=== PATIENT | male | born 1935 | race Caucasian/White ===

== ENCOUNTER 2021-01-26 13:03 | Emergency (ER) | payer MEDICARE, SELFPAY ==
--- NOTE | ~2021-01-26 | CT_ITS ---
EXAMINATION: CT facial & cervical spine wo DATE: 01/26/2021 14:05 INDICATION: Head injury. TECHNIQUE: Computed tomography (CT) of the maxillofacial region and cervical spine was performed with out intravenous contrast. Automated exposure control and iterative reconstruction technique were empl oyed. The dose-length product was 244.02 mGy-cm. COMPARISON: None FINDINGS: MAXILLOFACIAL CT: There is rightward deviation the nasal septum. No fracture. There is mild mucosal thickening in the p aranasal sinuses. There are likely changes of ocular lens replacement surgeries. CERVICAL SPINE CT: There is mild scarring at the lung apices. There is 10 degrees dextroscoliosis of cervical spine. The re is 2 mm anterolisthesis of C5 on C6. There are changes of anterior fusion procedure from C4 to C7 with C5 corpectomy, interbody device from C4 to C6, and anterior plate and screws from C4 to C6. Inte rvertebral disc heights are normal. The following disc levels are specifically discussed: C2-C3: There is mild bilateral uncovertebral joint osteoarthritis. There is severe bilateral facet ger int osteoarthritis. There is mild left neural foraminal stenosis. There is no central canal stenosis. C3-C4: There is mild right and moderate left uncovertebral joint osteoarthritis. There is mild right and severe left facet joint osteoarthritis. There is mild right and moderate left neural foraminal st enosis. There is mild central canal stenosis. C4-C5: There is moderate bilateral uncovertebral joint hypertrophy. There is mild right facet joint o steoarthritis. There is ankylosis of left facet joint with severe hypertrophy. There is mild right an d moderate left neural foraminal stenosis. There is no central canal stenosis. C5-C6: There is mild bilateral uncovertebral joint hypertrophy. There is mild right and severe left f acet joint osteoarthritis. There is mild left neural foraminal stenosis. There is mild central canal stenosis. C6-C7: There is mild left uncovertebral joint hypertrophy. There is mild bilateral facet joint osteoa rthritis. There is mild left neural foraminal stenosis. There is no central canal stenosis. C7-T1: There is mild bilateral uncovertebral joint osteoarthritis. There is severe right and mild lef t facet joint osteoarthritis. There is no neural foraminal stenosis. There is no central canal stenos is. IMPRESSION: 1. No fracture. 2. Moderate cervical spondylosis. 3. Anterior fusion procedure from C4 to C7. Reviewed, dictated and finalized at location A.
--- NOTE | ~2021-01-26 | CT_ITS ---
EXAMINATION: CT brain wo con DATE: 01/26/2021 14:04 INDICATION: Face injury. TECHNIQUE: Computed tomography (CT) of the head was performed without intravenous contrast. The mA wa s adjusted according to patient size. Iterative reconstruction technique was employed. The dose-lengt h product was 529.67 mGy-cm. COMPARISON: None FINDINGS: There is a small old infarct in right cerebellum. There are scattered areas of low attenuat ion in the cerebral white matter. There is no intracranial hemorrhage, acute infarction, or abnormal intracranial mass lesion. The ventricles are normal in size. There is mild mucosal thickening in the paranasal sinuses. There are likely changes of ocular lens replacement surgeries. The mastoid air win ls are normal. IMPRESSION: 1. Small old infarct in right cerebellum. 2. Mild nonspecific cerebral white matter disease, which likely represents chronic small vessel ische antonia disease. Reviewed, dictated and finalized at location A. IMPRESSION: 1. Small old infarct in right cerebellum. 2. 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
[2021-01-26 13:07] VITALS: BP 185/96; PULSE 66; RESP 19; TEMP 36.4; O2SAT 98
--- NOTE | 2021-01-26 13:29 | ED.FALL ---
HPI - Fall General Chief Complaint: Fall Stated Complaint: fall/facial injury/on coumadin Time Seen by Provider: 01/26/21 13:17 Source: patient, family and RN notes reviewed Mode of arrival: ambulatory Limitations: no limitations History of Present Illness HPI Narrative: This is an 85 year old male who presents for evaluation of fall . Patient states he was trying to cut a branch when he tripped over a wire. He was on the ground so this was fall from standing. He fell forward, and he his his nose/face on grassy ground. He was having nosebleed but it has resolved. He denies headache, dizziness, nausea, vomiting , rib pain or extremity pain. He takes Coumadin so he came to ER for evaluation . Related Data Allergies Allergy/AdvReac Type Severity Reaction Status Date / Time pregabalin Allergy Unknown Verified 09/11/16 09:27 cyclobenzaprine AdvReac Mild BLEEDING Verified 02/05/16 13:13 Review of Systems Review of Systems: All systems reviewed & are unremarkable except as noted in HPI and below PMFSH Past Medical History Medical History (Updated 01/26/21 @ 15:25 by Alyssa Fuller MD) Anxiety CAD (coronary artery disease) Hypertension Surgical History Surgical History (Updated 01/26/21 @ 15:23 by Alyssa Fuller MD) H/O prostatectomy History of appendectomy Hx of CABG Family History Family History (Updated 02/23/15 @ 13:43 by DOCTOR UNKNOWN) Sibling Family history of Parkinson's disease Family history of Alzheimer's disease Family history of heart disease in male family member before age 55 Cerebrovascular accident Father Acute myocardial infarction Social History Social History Smoking end date: 04/07/74 Alcohol intake: never Exam Const: General: no acute distress and alert Orientation/consciousness: patient oriented x3 HENMT: Head: normocephalic and atraumatic General nose exam: Other nasal findings present (abrasion to nose, no active bleeding) Face and sinus: sinuses nontender and face symmetric Mouth: Yes Normal oral and palatal mucosa present, Yes lip normal, Yes oropharynx normal and Yes moist mucous membranes Throat: posterior oropharynx normal, tonsils normal, uvula midline and other (no blood in oropharynx) Eyes: Pupils: Equal, round and reactive pupils present EOM: EOMs intact bilaterally Neck: Neck: normal visual inspection Chest: Chest palpation & inspection: normal inspection of the chest Resp: Effort & Inspection: normal respiratory effort and no retractions Auscultation: clear to auscultation bilaterally Cardio: Rate: regular rate Rhythm: regular rhythm Heart sounds: no murmurs GI: GI Palp: Yes Soft to palpation, No Tenderness to palpation present (GI) and No Guarding due to palpation present (GI) Auscultation: normal bowel sounds Back/Spine/Pelvis: Back: no CVA tenderness Neuro: General: patient oriented x3, moves all extremities and CN's II-XI intact bilaterally Extrem: General: normal to inspection Psych: Mental Status: mental status grossly normal Affect: normal affect Course Reevaluation(s) Reevaluation #1: I Discussed labs and CT with patient and daughter. No acute fracture. No epistaxis since my initial evaluation. Date: 01/26/21 Time: 15:24 Vital Signs Vital signs: Vital Signs Temperature 97.5 F L 01/26/21 13:07 Pulse Rate 66 01/26/21 13:07 Respiratory Rate 19 01/26/21 13:07 Blood Pressure 185/96 H 01/26/21 13:07 Pulse Oximetry 98 01/26/21 13:07 Temperature 97.5 F L 01/26/21 13:07 Pulse Rate 68 01/26/21 15:45 Respiratory Rate 18 01/26/21 15:45 Blood Pressure 176/92 H 01/26/21 15:45 Pulse Oximetry 98 01/26/21 15:45 MDM - Fall Medical Records Attestation: I reviewed the patient's medical records. Lab Data Attestation: I reviewed the patient's lab results. Result diagrams: 01/26/21 13:35 01/26/21 13:35 Labs: Lab Results 01/26/21 01/26/21 01/26/21 Range/U
--- NOTE | 2021-01-26 13:30 | PC.NURSE ---
Pt came in d/t falling down after tripping over a hose in the yard and falling face first and nose started to bleed, daughter wanted to bring pt in because pt takes blood thinners, pt is A&Ox4, pt presented with cloth in patients nose to control bleeding
[2021-01-26 13:49] LABS: Basophils Absolute Auto 0.1 K/mm3 (0.0-0.1); Basophils Percent Auto 0.8 % (0.2-1.2); Eosinophils Absolute Auto 0.2 K/mm3 (0-0.3); Eosinophils Percent Auto 2.9 % (0-4.4); Hematocrit 46.6 % (42.0-52.0); Immature Granulocyte Absolute 0.02 K/mm3 (0.00-0.031); Immature Granulocyte Percent A 0.3 % (0-0.5); Lymphocytes Absolute Auto 1.69 K/mm3 (0.9-3.2); Lymphocytes Percent Auto 25.8 % (18.3-44.2); Mean Corpuscular HGB Conc 34.3 g/dl (32-36); Mean Corpuscular Hemoglobin 32.5 pg (26-34); Mean Corpuscular Volume 94.7 fl (80-100); Mean Platelet Volume 9.3 fl (7.4-10.4); Monocytes Absolute Auto 0.6 K/mm3 (0.1-0.6); Monocytes Percent Auto 9.2 % (2.6-8.5); Platelet Count Result 158 k/mm3 (150-375); Red Blood Count 4.92 M/mm3 (4.6-6.20); Red Cell Distribution Width 12.6 % (11.5-14.5); White Blood Count 6.5 K/mm3 (4.5-10.0)
[2021-01-26 13:58] LABS: Alanine Aminotransferase 26 U/L (4-50); Albumin Level 4.8 g/dL (3.5-5.1); Alkaline Phosphatase 125 U/L (38-126); Anion Gap 9 mmol/L (8-16); Aspartate Amino Transferase 37 U/L (17-59); Bilirubin,Total 1.3 mg/dL (0.2-1.3); Blood Urea Nitrogen 15 mg/dL (9-20); Calcium 9.9 mg/dL (8.4-10.2); Carbon Dioxide 30 mmol/L (22-30); Chloride 102 mmol/L (98-107); Estimated CRCL calculation 40 ml/min; Estimated Glomerular Filt Rate > 60; Glucose 107 mg/dL (65-110); Sodium 141 mmol/L (137-145)
--- NOTE | 2021-01-26 14:00 | PC.NURSE ---
Pt nose has scrapes from the fall but patient nose is no longer bleeding,
[2021-01-26 14:01] LABS: INR 2.6; Prothrombin Time 26.9 Seconds (11.1-14.7)
[2021-01-26 14:02] LABS: Partial Thromboplastin Time 38.6 SECONDS (22.3-36.8)
[2021-01-26 15:45] VITALS: BP 176/92; PULSE 68; RESP 18; O2SAT 98
--- NOTE | 2021-01-26 15:51 | PC.NURSE ---
Pt is preparing for discharge and states he feels ready to go home with daughter
== END 2021-01-26 15:45 | disposition home or self-care (01) ==
PROVIDERS: Emergency Provider General Practice; PCP Internal Medicine
DX: S00.83XA Contusion of other part of head, initial encounter (principal); R04.0 Epistaxis; Z79.01 Long term (current) use of anticoagulants; I25.10 Atherosclerotic heart disease of native coronary artery without angina pectoris; I10 Essential (primary) hypertension; Z95.1 Presence of aortocoronary bypass graft; Z90.79 Acquired absence of other genital organ(s); R90.82 White matter disease, unspecified; M47.812 Spondylosis without myelopathy or radiculopathy, cervical region; Z98.1 Arthrodesis status; W18.09XA Striking against other object with subsequent fall, initial encounter
CPT/HCPCS: 36415; 70450; 70486; 72125; 80053; 85025; 85610; 85730; 99284

== ENCOUNTER 2022-04-02 12:23 | Emergency (ER) | payer MEDICARE, SELFPAY ==
[2022-04-02 13:35] VITALS: BP 145/68; PULSE 63; RESP 16; TEMP 36.8; O2SAT 99
--- NOTE | 2022-04-02 14:00 | ED.EAR ---
HPI - Ear Problem General Chief complaint: Ear Stated complaint: right ear clogged Time Seen by Provider: 04/02/22 14:00 Source: patient Mode of arrival: ambulatory Limitations: no limitations History of Present Illness HPI Narrative: 87-year-old male presented for complaint of right ear erectile infection for over 1 week. Daughter has been using hydrogen peroxide but patient continues to report decreased hearing. He denies tinnitus, dizziness, headache, nausea or vomiting. MD Complaint: ear pain Related Data Home Medications Medication Instructions Recorded Confirmed atorvastatin 80 mg tablet 80 mg DAILY 04/02/22 04/02/22 losartan 100 mg tablet 100 mg HS 04/02/22 04/02/22 omeprazole 40 mg capsule,delayed 20 mg DAILY 04/02/22 04/02/22 release terbinafine HCl 250 mg tablet 250 mg DAILY 04/02/22 04/02/22 warfarin 2.5 mg tablet 2.5 mg DIRECTED 04/02/22 04/02/22 Allergies Allergy/AdvReac Type Severity Reaction Status Date / Time pregabalin Allergy Unknown Unknown Verified 04/02/22 13:44 cyclobenzaprine AdvReac Mild BLEEDING Verified 02/05/16 13:13 Review of Systems Review of Systems: CONSTITUTIONAL: Denies malaise, chills, or fever. EYES: Denies visual changes, redness, or discharge. ENT: Denies rhinorrhea, congestion, sinus pain, and sore throat. Reports ear wax CARDIOVASCULAR: Denies chest pain, palpitations, or edema. RESPIRATORY: Denies cough or dyspnea. GASTROINTESTINAL: Denies abdominal pain, nausea, vomiting, diarrhea SKIN: Denies rash or itching. MUSCULOSKELETAL: Denies myalgia. NEUROLOGIC: Denies headache. All systems reviewed & are unremarkable except as noted in HPI and below PMFSH Past Medical History Medical History Anxiety CAD (coronary artery disease) Hypertension Surgical History Surgical History H/O prostatectomy History of appendectomy Hx of CABG Family History Family History Sibling Family history of Parkinson's disease Family history of Alzheimer's disease Family history of heart disease in male family member before age 55 Cerebrovascular accident Father Acute myocardial infarction Social History Social History Smoking end date: 04/07/74 Alcohol intake: never Comments At time of signature, agree with nursing past medical, surgical, social and family history. There is no relevant family history pertinent to the presenting complaint Exam Narrative: GENERAL: Well-appearing, well-nourished, and in no acute distress. HEAD: Normocephalic EYES: PERRLA, conjunctivae clear ENT: Nares clear. Mucous membranes moist. Left TM pearly gore with dull light reflex, right TM unable to visualize due to cerumen impaction; no tragal tenderness. NECK: Supple. No lymphadenopathy CHEST: Clear to auscultation, breath sounds equal. HEART: Regular rate and rhythm. No murmur heard. SKIN: Warm, dry, no rash. NEURO: Alert and oriented x3. PSYCH: Normal mood and affect Course Course Emergency Course: Patient is aware of diagnosis, understands and agrees to treatment plan. Anticipatory guidance given. Patient agrees to follow-up as directed and is aware of reasons to seek care at the emergency department. Portions of this record may have been created with voice recognition software Level of Care: Express Care Visit Vital Signs Vital signs: Vital Signs Temperature 98.2 F 04/02/22 13:35 Pulse Rate 63 04/02/22 13:35 Respiratory Rate 16 04/02/22 13:35 Blood Pressure 145/68 H 04/02/22 13:35 Pulse Oximetry 99 04/02/22 13:35 Oxygen Delivery Room Air 04/02/22 13:35 Temperature 98.2 F 04/02/22 13:35 Pulse Rate 63 04/02/22 13:35 Respiratory Rate 16 04/02/22 13:35 Blood Pressure 145/68 H 04/02/22 13:35 Pulse Oximetry 99 04/02/22 1
== END 2022-04-02 14:15 | disposition home or self-care (01) ==
PROVIDERS: Emergency Provider Nurse Practitioner Family
DX: H61.21 Impacted cerumen, right ear (principal); T16.1XXA Foreign body in right ear, initial encounter; I25.10 Atherosclerotic heart disease of native coronary artery without angina pectoris; Z79.01 Long term (current) use of anticoagulants; I10 Essential (primary) hypertension
CPT/HCPCS: 69210; 99212; A9270; G0463

== ENCOUNTER 2023-04-10 22:29 | Emergency (ER) | payer MEDICARE, SELFPAY ==
[2023-04-10] VITALS (11 sets, daily range): BP systolic 160–236; BP diastolic 85–119; PULSE 62–126; RESP 15–27; TEMP 35.8–35.9; O2SAT 97–100
--- NOTE | ~2023-04-10 | CT_ITS ---
EXAMINATION: CT cervical spine wo con DATE: 04/10/2023 22:55 INDICATION: Head injury. TECHNIQUE: Computed tomography (CT) of the cervical spine was performed without intravenous contrast. Automated exposure control and iterative reconstruction technique were employed. The dose-length pro duct was 284.86 mGy-cm. COMPARISON: CT cervical spine 01/26/2021 FINDINGS: There is 5 degrees dextrocurvature of cervical spine. There is 2 mm anterolisthesis of C5 o n C6. There are changes of anterior fusion procedure from C4 to C7 with C5 corpectomy, interbody bj ce from C4 to C6, and anterior plate and screws from C4 to C6. There is a chronic compression fractur e of T3 with less than 1/5 loss of height. Intervertebral disc heights are normal. The following disc levels are specifically discussed: C2-C3: There is mild bilateral uncovertebral joint osteoarthritis. There is severe bilateral facet ger int osteoarthritis. There is mild left neural foraminal stenosis. There is no central canal stenosis. C3-C4: There is mild right and moderate left uncovertebral joint osteoarthritis. There is mild right and severe left facet joint osteoarthritis. There is mild right and moderate left neural foraminal st enosis. There is mild central canal stenosis. C4-C5: There is moderate bilateral uncovertebral joint hypertrophy. There is mild right facet joint o steoarthritis. There is ankylosis of left facet joint with severe hypertrophy. There is mild right an d moderate left neural foraminal stenosis. There is no central canal stenosis. C5-C6: There is mild bilateral uncovertebral joint hypertrophy. There is mild right and severe left f acet joint osteoarthritis. There is mild left neural foraminal stenosis. There is mild central canal stenosis. C6-C7: There is mild left uncovertebral joint hypertrophy. There is mild bilateral facet joint osteoa rthritis. There is mild left neural foraminal stenosis. There is no central canal stenosis. C7-T1: There is mild bilateral uncovertebral joint osteoarthritis. There is severe right and mild lef t facet joint osteoarthritis. There is no neural foraminal stenosis. There is no central canal stenos is. IMPRESSION: 1. No fracture. 2. Moderate cervical spondylosis. 3. Anterior fusion procedure from C4 to C7. Reviewed, dictated and finalized at location E. NER
--- NOTE | ~2023-04-10 | CT_ITS ---
EXAMINATION: CT brain wo con DATE: 04/10/2023 22:52 INDICATION: Head injury. TECHNIQUE: Computed tomography (CT) of the head was performed without intravenous contrast. The mA wa s adjusted according to patient size. Iterative reconstruction technique was employed. The dose-lengt h product was 1816.00 mGy-cm. COMPARISON: Head CT 01/26/2021 FINDINGS: There is a small old infarct in right cerebellum. There is an acute right frontotemporal pa rietal subdural hematoma with maximum thickness of 1.9 cm. There is an old infarct involving the left basal ganglia and left frontoparietal feliz radiata. There is no acute ischemic infarct or abnormal mass lesion. There is 10 mm leftward midline shift. There is right-sided uncal herniation. There is mass effect on the cerebral ventricles. There is mild mucosal thickening in the paranasal sinuses. Th ere are likely changes of ocular lens replacement surgeries. The mastoid air cells are normal. IMPRESSION: 1. Acute right frontotemporal parietal subdural hematoma with maximum thickness of 1.9 cm. 2. 10 mm leftward midline shift. Right-sided uncal herniation. 3. 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 Reviewed, dictated and finalized at location E. ICAL THERAPY TEACHER IMPRESSION: 1. Acute right frontotemporal parietal subdural hematoma with maximum thickness of 1.9 cm. 2. 10 mm leftward midline shift. Right-sided uncal herniation. 3. 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
--- NOTE | ~2023-04-10 | XR_ITS ---
EXAMINATION: XR abdomen gastric tube insert DATE: 04/10/2023 23:12 INDICATION: Orogastric tube placement. TECHNIQUE: A supine view of the abdomen was obtained. COMPARISON: None. FINDINGS: There are no dilated loops of bowel. The orogastric tube tip is in the stomach. There is el ectronic implant in left chest wall. Median sternotomy wires are noted. IMPRESSION: 1. Orogastric tube tip in the stomach. Reviewed, dictated and finalized at location E. ERVATION COORDINATOR
--- NOTE | ~2023-04-10 | XR_ITS ---
EXAMINATION: XR chest ET placement DATE: 04/10/2023 23:12 INDICATION: Head injury. TECHNIQUE: A single frontal view of the chest was obtained. COMPARISON: Chest 2 views 02/06/2016 FINDINGS: There is chronic mild elevation of right hemidiaphragm. There is mild atelectasis at right lung base. No pleural effusion or pneumothorax. The heart size is normal. There are changes of anteri or fusion procedure in cervical spine. The endotracheal tube tip is 3.8 cm above the donn. The naso gastric tube tip is in the stomach. There is electronic implant overlying left chest. IMPRESSION: 1. Mild atelectasis at right lung base. Reviewed, dictated and finalized at location E. [employer]
[2023-04-10 22:43] LABS: Glucose Point of Care 147 mg/dl (65-105)
--- NOTE | 2023-04-10 22:43 | ECG_ITS ---
Measurements Intervals [place] Rate: 87 P: -7 W[place]: 206 QRS: -21 QRSD: 84 T: 58 QT: 371 QTc: 449 Interpretive Statements SINUS RHYTHM BORDERLINE R WAVE PROGRESSION, ANTERIOR LEADS INFERIOR INFARCT, AGE INDETERMINATE BASELINE ARTIFACT- I, II, III, AVR, AVL, AVF, V1-V6 ABNORMAL ECG NO PREVIOUS ECG AVAILABLE FOR COMPARISON Electronically Signed On 04-11-2023 19:21:48 DIGITAL DESIGNER by Boom Keith D.O.
--- NOTE | 2023-04-10 23:13 | PC.NURSE ---
Patient unable to speak and answer questions with this RN upon arrival to the ED. This RN spoke with provider and verbal order was given to head CT and C-spine CT. Patient taken to CT scan where patient began vomiting during the scan. Patient was able to stop vomiting and get the head CT done, but immediately began vomiting again after scan was complete. Provider aware and intubation supplies were set up upon patient's arrival back from CT. Patient arrived back to room at 2250 2259-20mg of etomidate was given by JACKIE Suh 2259- 100mg of rocc was given by JACKIE Suh 2301- 7mm ET tube placed at 23mm at the teeth. placement verified by auscultating and color change followed by chest xray. 2304-OG tube placed at 50mm at the lip by JACKIE Suh
[2023-04-10] MEDS: PHYTONADIONE ADULT INJ 10 MG in DEXTROSE 5% IN WATER 50 ML 100 MG IVPB (23:18)
[2023-04-10] MEDS: ONDANSETRON INJ 4 MG/2 ML VIAL IV PUSH (23:20)
[2023-04-10 23:32] LABS: Basophils Absolute Auto 0.1 K/mm3 (0.0-0.1); Basophils Percent Auto 0.5 % (0.2-1.2); Eosinophils Absolute Auto 0.2 K/mm3 (0-0.3); Eosinophils Percent Auto 1.7 % (0-4.4); Hematocrit 41.3 % (42.0-52.0); Hemoglobin 13.2 g/dL (14.0-18.0); Immature Granulocyte Absolute 0.06 K/mm3 (0.00-0.031); Immature Granulocyte Percent A 0.5 % (0-0.5); Lymphocytes Absolute Auto 3.73 K/mm3 (0.9-3.2); Lymphocytes Percent Auto 29.5 % (18.3-44.2); Mean Corpuscular Hemoglobin 30.1 pg (26-34); Mean Corpuscular Volume 94.1 fl (80-100); Mean Platelet Volume 9.8 fl (7.4-10.4); Monocytes Absolute Auto 1.1 K/mm3 (0.1-0.6); Monocytes Percent Auto 8.5 % (2.6-8.5); Neutrophils Absolute Auto 7.5 K/mm3 (1.3-6.7); Neutrophils Percent Auto 59.3 % (45.5-73.1); Platelet Count Result 206 k/mm3 (150-375); Red Blood Count 4.39 M/mm3 (4.6-6.20); Red Cell Distribution Width 14.6 % (11.5-14.5); White Blood Count 12.7 K/mm3 (4.5-10.0)
--- NOTE | 2023-04-10 23:38 | ED.FALL ---
HPI - Fall General Chief Complaint: Fall Stated Complaint: FALL Time Seen by Provider: 04/10/23 22:34 Source: patient, family and EMS Limitations: clinical condition and dementia History of Present Illness HPI Narrative: Patient is an 88-year-old male presents to the emergency department by EMS for a ground level fall asleep early occurred around 10:00 p.m.. Patient is oriented to self, complaining of neck pain, following basic commands. Family reports that the patient is on warfarin. Related Data Home Medications Medication Instructions Recorded Confirmed atorvastatin 80 mg tablet 80 mg DAILY 04/02/22 04/02/22 losartan 100 mg tablet 100 mg HS 04/02/22 04/02/22 omeprazole 40 mg capsule,delayed 20 mg DAILY 04/02/22 04/02/22 release terbinafine HCl 250 mg tablet 250 mg DAILY 04/02/22 04/02/22 warfarin 2.5 mg tablet 2.5 mg DIRECTED 04/02/22 04/02/22 Allergies Allergy/AdvReac Type Severity Reaction Status Date / Time pregabalin Allergy Unknown Unknown Verified 04/02/22 13:44 cyclobenzaprine AdvReac Mild BLEEDING Verified 02/05/16 13:13 Review of Systems Review of Systems: ROS unobtainable: Yes unobtainable due to medical condition PMFSH Past Medical History Medical History Anxiety CAD (coronary artery disease) Hypertension Surgical History Surgical History H/O prostatectomy History of appendectomy Hx of CABG Family History Family History Sibling Family history of Parkinson's disease Family history of Alzheimer's disease Family history of heart disease in male family member before age 55 Cerebrovascular accident Father Acute myocardial infarction Social History Social History Smoking end date: 04/07/74 Alcohol intake: never Comments At time of signature, I have reviewed and agree with nursing past medical, surgical, social and family history unless otherwise noted. Please see the nursing chart for further information. There is no relevant family history pertinent to the presenting complaint. Exam Narrative: CONST: Well nourished. HENMT: Head is normocephalic and atraumatic. Tacky mucous membranes. No posterior oropharynx erythema. EYES: No conjunctival icterus, injection, or pallor. PERRL. NECK: No meningeal signs. Cervical collar in place. RESP: Speaking in phrases. Normal respiratory effort. CTAB. CARDIO: Regular rate. Regular rhythm. 2+ DP and radial pulses bilaterally. GI: Nondistended. No tenderness to palpation. Soft. : No CVA tenderness to palpation. Bilateral testes are descended nontender and non swollen, circumcised penis without erythema or lesions. SKIN: No rashes or lesions noted on exposed skin. NEURO: Oriented x1. Moves all extremities. Speech is slightly slurred. Pupils are equal round reactive to light and approximately 2 mm bilaterally. Bilateral medical dir strength is equal and 5/5. Patient follows commands to dorsiflex and plantar flex his bilateral ankles. Patient withdraws from noxious stimuli in all 4 extremities. No facial asymmetry. Gaze is midline. EXTREM/MSK/BACK: No pedal edema. No midline vertebral tenderness to palpation or step-offs. Mild tenderness to palpation of the right thigh without obvious deformity or overlying skin changes. Course Vital Signs Vital signs: Vital Signs Pulse Rate 96 04/10/23 22:45 Respiratory Rate 20 04/10/23 22:45 Blood Pressure 178/85 H 04/10/23 22:45 Pulse Oximetry 97 04/10/23 22:45 Temperature 95.9 F L 04/11/23 00:13 Pulse Rate 88 04/11/23 00:37 Respiratory Rate 24 H 04/11/23 00:37 Blood Pressure 186/99 H 04/11/23 00:37 Pulse Oximetry 100 04/11/23 00:37 Oxygen Delivery Mechanical Ventilation 04/10/23 23:30 Fraction of Inspired Oxygen 60 04/10/23 23:30
[2023-04-10 23:39] LABS: Appearance Urine Clear (Clear); Bacteria Urine None Seen /hpf; Bilirubin Urine Negative (Negative); Blood Urine Negative (Negative); Color Urine Yellow (Yellow); Glucose Urine UA Negative (Negative); Ketones Urine Negative (Negative); Leukocyte Esterase Ur Negative LEU/UL (Negative); Nitrate Urine Negative (Negative); Non Pathogenic Casts 0-2; Protein Urine Trace mg/dL (Negative); RBC Urine 0-2 /hpf (0-2); Specific Grav Ur 1.013 (1.001-1.035); Squamous Epithelial Cell Urine None seen /hpf (Few); WBC Urine 0-5 /hpf; pH Urine 7.5 (5.0-9.0)
[2023-04-10 23:44] LABS: Salicylate < 1.0 mg/dL (2-20)
[2023-04-10] MEDS: PROPOFOL IV EMULSION 100 ML 2.17 MG IV CONT (23:44)
[2023-04-10 23:45] LABS: Acetaminophen < 10 ug/mL (10-30); Ammonia < 9 umol/L (9-30); Ethanol < 10 mg/dL (<10); Lactic Acid Reflex 3.1 mmol/L (0.7-2.0)
[2023-04-10 23:48] LABS: Add Urine Microscopic? YES
[2023-04-10 23:48] LABS: INR 2.4; Prothrombin Time 27.7 Seconds (11.1-14.7)
[2023-04-10 23:50] LABS: Amphetamine Screen Urine Negative (Negative); Barbiturate Screen Urine Negative (Negative); Benzodiazepines Screen Urine Negative (Negative); Cannabinoid Screen Urine Negative (Negative); Cocaine Screen Urine Negative (Negative); Methadone Screen Urine Negative (Negative); Opiate Screen Urine Negative (Negative); Phencyclidine Screen Urine Negative (Negative)
[2023-04-10 23:51] LABS: Alveolar/Arterial O2 Gradient 123.6 mmHg; Base Excess ABG -0.8 mEq/l (+/-2.0); Fractional Inspired Oxygen 60 %; HCO3 ABG 24.8 mEq/l (22.0-26.0); Oxygen Content ABG 19.8 %vol (16.0-22.0); Oxygen Saturation ABG 99.6 % (95.0-100.0); Oxyhemoglobin 98.1 % THb (90.0-100.0); PCO2 ABG 44.4 mmHg (35.0-45.0); PO2 ABG 255.4 mmHg (80.0-100.0); PO2 FiO2 Ratio Arterial Blood 4.26 %; Total Hemoglobin 13.9 g/dL (12.0-18.0); pH ABG 7.365 (7.350-7.450)
[2023-04-10] MEDS: MANNITOL 20% 500 ML 50 ML IV CONT (23:51)
[2023-04-10 23:53] LABS: Arterial Blood Gas Vent Mode CMV; Arterial Blood Gas Ventilator rate 20 /MIN; Device VENTILATOR; Modified Allen's Test Pass; Site Drawn RIGHT RADIAL
[2023-04-10 23:54] LABS: Arterial Blood Gas PEEP 5 cmH2O; Arterial Blood Gas Tidal Volume 400 ml
[2023-04-10 23:58] LABS: Troponin I < 0.012 ng/mL (0.000-0.034)
[2023-04-11 00:05] VITALS: BP 216/99; PULSE 63; RESP 16; O2SAT 100
[2023-04-11 00:07] VITALS: BP 211/95; PULSE 72; TEMP 35.6; O2SAT 99
[2023-04-11 00:07] LABS: Alanine Aminotransferase 29 U/L (6-50); Albumin Level 3.9 g/dL (3.5-5.1); Alkaline Phosphatase 207 U/L (38-126); Anion Gap 13 mmol/L (8-16); Aspartate Amino Transferase 44 U/L (17-59); Bilirubin,Total 1.3 mg/dL (0.2-1.3); Blood Urea Nitrogen 15 mg/dL (9-20); Calcium 8.8 mg/dL (8.4-10.2); Carbon Dioxide 23 mmol/L (22-30); Chloride 104 mmol/L (98-107); Creatine Kinase 86 U/L (55-170); Estimated CRCL calculation 50 ml/min; Estimated Glomerular Filt Rate > 60; Glucose 196 mg/dL (65-110); Lipase 72 U/L (23-300); Magnesium 1.5 mg/dL (1.6-2.3); Potassium 2.9 mmol/L (3.4-5.0); Sodium 140 mmol/L (137-145)
[2023-04-11 00:13] VITALS: PULSE 79; TEMP 35.5; O2SAT 99
[2023-04-11 00:23] LABS: Influenza A QL RT-PCR Negative (Negative); Influenza B QL RT-PCR Negative (Negative); RSV RNA, RT-PCR Negative (Negative); SARS-CoV-2 RNA PCR Negative (Negative)
[2023-04-11 00:31] VITALS: BP 192/95; PULSE 80; RESP 24; O2SAT 100
[2023-04-11 00:37] VITALS: BP 186/99; PULSE 88; RESP 24; O2SAT 100
[2023-04-11 02:29] LABS: Reflex Lactic Acid Yes or No Add Lactic
== END 2023-04-11 01:00 | disposition short-term general hospital (02) ==
PROVIDERS: Emergency Provider Student in an Organized Health Care Education/Training Program
DX: S06.5XAA Traumatic subdural hemorrhage with loss of consciousness status unknown, initial encounter (principal); S06.A1XA Traumatic brain compression with herniation, initial encounter; I25.10 Atherosclerotic heart disease of native coronary artery without angina pectoris; I10 Essential (primary) hypertension; Z95.1 Presence of aortocoronary bypass graft; Z87.891 Personal history of nicotine dependence; Z90.79 Acquired absence of other genital organ(s); Z79.01 Long term (current) use of anticoagulants; W18.30XA Fall on same level, unspecified, initial encounter; R94.31 Abnormal electrocardiogram [ECG] [EKG]; M47.812 Spondylosis without myelopathy or radiculopathy, cervical region; Z98.1 Arthrodesis status
CPT/HCPCS: 31500; 32551; 36415; 36600; 51702; 70450; 72125; 80053; 80307; 81001; 82140; 82550; 82805; 82948; 83605; 83690; 83735; 84443; 84484; 85025; 85610; 85730; 86850; 86900; 86901; 87637; 93005; 94002; 96365; 96367; 96375; 99291; J2405; J2704; J3430; J7168; L0140